=== PATIENT | female | born 1945 | race Caucasian/White ===

== ENCOUNTER 2025-09-15 15:55 | Outpatient (CLI) | payer MEDICARE ==
[~2025-09-15] VITALS: Ht 162.6 cm; Wt 45.4 kg
[2025-09-15] MEDS: albuterol 2.5 MG/3 ML nebule NEB ONE (17:41)
[2025-09-15 17:45] VITALS: PULSE 80; RESP 18; O2SAT 71
== END 2025-09-15 23:59 | disposition home or self-care (01) ==
LOC: RT 15:55
PROVIDERS: ATTEND Internal Medicine Critical Care Medicine
DX: J44.9 Chronic obstructive pulmonary disease, unspecified (principal); R06.02 Shortness of breath
CPT/HCPCS: 94010; 94729; 94760